=== PATIENT | female | born 1990 | race Caucasian/White ===

== ENCOUNTER 2019-12-15 12:11 | Emergency (ER) | payer MEDICAID ==
[2019-12-15 13:31] VITALS: BP 103/58
[2019-12-15] MEDS ORDERED: PARoxetine 10 MG TABLET PO STA (13:31)
[2019-12-15] MEDS ORDERED: ONDANSETRON ODT 4 MG TABLET TL STA (13:31)
--- NOTE | 2019-12-15 13:40 | ED Physician Documentation ---
History of Present Illness - Stated complaint Stated Complaint: WITHDRAWL FROM ANTIDEPRESSANTS - Chief complaint Chief Complaint: General - History obtained from History obtained from: Patient - History of Present Illness Timing: Today Pain level max: 0 Pain level now: 0 - Additonal information Additional information: 29-year-old female presents to the emergency department stating that she has been on Paxil for approximately the last 7 to 8 weeks. She was told that she could stop it by her doctor. She states that since that time she has had nausea, no vomiting, chills and hot flashes, generally feeling unwell. She is not suicidal or homicidal. She stopped the Paxil approximately 7 days ago. Review of Systems Ten Systems: 10 systems reviewed and negative Constitutional: reports: Chills. denies: Fever Eyes: denies: Decreased vision, Photophobia Ears: denies: Ear pain Nose: denies: Rhinorrhea / runny nose, Congestion Throat: denies: Sore throat Cardiac: denies: Chest pain / pressure Respiratory: denies: Cough GI: denies: Abdominal Pain, Nausea, Vomiting, Diarrhea Skin: denies: Rash Musculoskeletal: denies: Neck pain, Back pain Neurologic: denies: Headache PD PAST MEDICAL HISTORY - Past Medical History Past Medical History: Yes Cardiovascular: None Respiratory: None Neuro: None Endocrine/Autoimmune: None GI: None [employer]: None : None HEENT: None Psych: Depression, Anxiety, Panic attacks Musculoskeletal: None Derm: None - Past Surgical History Past Surgical History: Yes General: Cholecystectomy, Appendectomy - Present Medications Home Medications: Ambulatory Orders Medication Instructions Recorded Confirmed PARoxetine [Paxil] 10 mg PO DAILY #14 tablet 12/15/19 - Allergies Allergies/Adverse Reactions: Allergies Allergy/AdvReac Type Severity Reaction Status Date / Time No Known Drug Allergies Allergy Verified 12/15/19 12:22 - Social History Does the pt smoke?: Yes Smoking Status: Current every day smoker ETOH Use: Beer Substance Use and Type: Marijuana - Immunizations Immunizations are current?: Yes PD ED PE NORMAL - Vitals Vital signs reviewed: Yes - General General: Alert and oriented X 3, No acute distress - HEENT HEENT: Moist mucous membranes - Neck Neck: Supple, no meningeal sign - Cardiac Cardiac: RRR - Respiratory Respiratory: No respiratory distress, Clear bilaterally - Abdomen Abdomen: Soft, Non tender, Non distended - Back Back: No CVA TTP - Derm Derm: Warm and dry - Extremities Extremities: No edema, No calf tenderness / cord - Neuro Neuro: Alert and oriented X 3 - Psych Psych: Normal mood, Normal affect Results - Vitals Vitals: Vital Signs - 24 hr 12/15/19 12/15/19 12:22 13:29 Temperature 36.8 C Heart Rate 68 50 L Respiratory 16 16 Rate Blood Pressure 123/80 103/58 L O2 Saturation 100 100 Oxygen O2 Source Room air PD MEDICAL DECISION MAKING - ED course Complexity details: considered differential, d/w patient ED course: Patient appears to be having withdrawal from Paxil. Will restart her at a lower dose and slowly taper her over the next 3 weeks. Patient is well-appearing, nontoxic. Afebrile. Patient counseled regarding signs and symptoms for which I believe and urgent re-evaluation would be necessary. Patient with good understanding of and agreement to plan and is comfortable going home at this time This document was made in part using voice recognition software. While efforts are made to proofread this document, sound alike and grammatical errors may occur. 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 Return if you worsen. Paxil withdrawal can be severe, tapering should help the symptoms. Discharge Date/Time: 12/15/19 13:49
== END 2019-12-15 13:49 | disposition home or self-care (01) ==
LOC: ED 12:11
DX: F19.230 Other psychoactive substance dependence with withdrawal, uncomplicated (principal); R11.0 Nausea; R68.83 Chills (without fever); F32.9 Major depressive disorder, single episode, unspecified; F17.200 Nicotine dependence, unspecified, uncomplicated
CPT/HCPCS: 99282; 99284; A9270; Q0162